=== PATIENT | female | born 1945 | race Caucasian/White ===

== ENCOUNTER 2016-09-11 08:05 | Day surgery (SDC) | payer MEDICARE, BC ==
[~2016-09-11] VITALS: Ht 165.1 cm; Wt 77.3 kg
--- NOTE | 2016-09-12 06:14 | OR ---
ADMIT: 09/11/2016 RM/LOC: [facility] MR#: [id number] [facility] [address] [place] [phone] JAMIE WINKLER [address] [place] [address] Operative/Delivery Room Report SEX: F AGE: 70 : 1945 SURGERY DATE: 09/11/2016 SURGEON: Jamie Escamilla MD PROCEDURE: Esophagogastroduodenoscopy with biopsies. PREOPERATIVE DIAGNOSIS: Anemia. POSTOPERATIVE DIAGNOSES: 1. Widely patent Schatzki B-ring. 2. Small sliding type hiatal hernia. 3. Benign fundic polyps. 4. 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 DESCRIPTION OF PROCEDURE: The patient was brought to the procedure room, placed in left lateral decubitus position. Informed consent had been obtained preoperatively. The risks and benefits including, but not limited to, perforation, sedation, bleeding were discussed with the patient and agreed upon. All questions were answered, alternatives discussed and the patient agreed. TIVA was provided by Dr. Fontana with propofol. Olympus videoendoscope, model GIF-XQ180 was passed to the level of cricopharyngeus using finger guidance. Then, using direct visualization, the scope was passed to the length of the esophagus where no abnormalities, esophageal mucosa were identified. There was once again a widely patent Schatzki B ring and associated with this was a small sliding type hiatal hernia. Stomach was entered, air was insufflated, fundic pool was suctioned. Gastric mucosa inspected in its entirety and found to be normal except for benign fundic polyps due to her long-term use of the PPI. The largest of these was biopsied. Biopsies were taken in the antrum to rule out occult Helicobacter infection. The pyloric sphincter was round, small, opened, and closed appropriately. Duodenal bulb was entered, inspected through the second part. There was a lone AV malformation present. Biopsies were taken deep in the second part to rule out celiac disease. The scope was withdrawn in the stomach, retroflexed in the cardia where once again hiatal hernia was identified. The scope was then slowly removed. Incidental view of the vocal cords revealed no abnormalities. The patient tolerated the procedure well. No complications were expected. Blood loss was less than 1 mL. She will call me in 1 week for her biopsy report, or sooner if she should have any postoperative problems. We will now proceed with colonoscopy on this patient due to her history of anemia and adenomatous colon polyps. Jamie Escamilla MD/ peri JOB #: [id number] CC: Jamie Escamilla, Attending Physician Hilda Kramer, Family Physician
--- NOTE | 2016-09-12 06:14 | OR ---
ADMIT: 09/11/2016 RM/LOC: [facility] MR#: [id number] [address] [facility] [address] [place] [id number] JAMIE WINKLER [address] [place] [address] Operative/Delivery Room Report SEX: F AGE: 70 : 1945 SURGERY DATE: 09/11/2016 SURGEON: Jamie Escamilla MD PROCEDURE: Total colonoscopy with hot biopsy polypectomy. PREOPERATIVE DIAGNOSES: 1. Colon polyps. 2. Anemia. POSTOPERATIVE DIAGNOSES: 1. Minimal left-sided diverticulosis. 2. Transverse colon polyp. DESCRIPTION OF PROCEDURE: The patient had been previously gastroscoped. Once again, informed consent had been obtained preoperatively. The risks and benefits including, but not limited to, perforation, sedation, bleeding were discussed with the patient and agreed upon. All questions were answered, alternatives discussed and the patient agreed. TIVA be provided by Dr. Arce with propofol. Anal inspection, digital examination revealed some external tags. Digital examination revealed no abnormalities or obstructing masses. The Olympus videoendoscope, model CFH-180AL was inserted into the rectum and advanced to the cecum without difficulty. The appendiceal orifice and ileocecal valve were identified. The valve was not cannulated due to position. The scope was slowly withdrawn through a normal cecum and ascending colon. In the proximal transverse colon, there was a small typical adenomatous polyp that was grasped with the hot biopsy forceps, cauterized, and retrieved. The remainder of the transverse and descending colon were normal. In the sigmoid, there were scattered diverticula. The rectum appeared normal. Scope was retroflexed. The anal verge appeared normal. The patient tolerated the procedure well. No complications were expected. Blood loss was less than 1 mL. She will call me in 1 week for her biopsy report, or sooner if she should have any postoperative problems. Recommend she have repeat colonoscopy in 5 years due to her history of adenomatous polyps. Jamie Escamilla MD/ peri JOB #: [id number] CC: Jamie Escamilla, Attending Physician Hilda Kramer, Family Physician Hilda Kramer MD
== END 2016-09-11 12:56 | disposition home or self-care (01) ==
LOC: SSS 08:05
PROC: 0DB68ZX Excision of Stomach, Via Natural or Artificial Opening Endoscopic, Diagnostic (ICD-10-PCS; principal; 2016-09-11)
PROC: 0DBL8ZX Excision of Transverse Colon, Via Natural or Artificial Opening Endoscopic, Diagnostic (ICD-10-PCS; principal; 2016-09-11)
PROC: 0DB98ZX Excision of Duodenum, Via Natural or Artificial Opening Endoscopic, Diagnostic (ICD-10-PCS; principal; 2016-09-11)
DX: K57.30 Diverticulosis of large intestine without perforation or abscess without bleeding (principal); K63.89 Other specified diseases of intestine; K31.7 Polyp of stomach and duodenum; K44.9 Diaphragmatic hernia without obstruction or gangrene; K22.2 Esophageal obstruction; K31.819 Angiodysplasia of stomach and duodenum without bleeding; K29.50 Unspecified chronic gastritis without bleeding; I10 Essential (primary) hypertension; J45.909 Unspecified asthma, uncomplicated; K21.9 Gastro-esophageal reflux disease without esophagitis; G47.30 Sleep apnea, unspecified; D64.9 Anemia, unspecified; Z90.710 Acquired absence of both cervix and uterus; Z98.890 Other specified postprocedural states